=== PATIENT | male | born 1935 | race Caucasian/White ===

== ENCOUNTER 2017-03-26 05:33 | Inpatient (IN) | payer MEDICARE, BC ==
[~2017-03-26] VITALS: Ht 180.3 cm; Wt 76.8 kg
[2017-03-26 06:33] LABS: BASOPHILS # (AUTO) 0.1 X10'3 (0-0.2); BASOPHILS % (AUTO) 1.1 % (0-1); EOSINOPHILS % (AUTO) 0 % (0-6); HEMATOCRIT 54.9 % (42.0-52.0); LYMPHOCYTES # (AUTO) 0.9 X10'3 (1.1-4.8); LYMPHOCYTES % (AUTO) 7.2 % (21-51); MEAN CORPUSCULAR HEMOGLOBIN 30.9 PG (27.0-31.0); MEAN CORPUSCULAR HGB CONC 32.8 % (33.0-36.5); MEAN CORPUSCULAR VOLUME 94.3 FL (78-98); MEAN PLATELET VOLUME 9.9 FL (7.4-10.4); MONOCYTES # (AUTO) 1.1 X10'3 (0-0.9); MONOCYTES % (AUTO) 8.4 % (2-12); NEUTROPHILS # (AUTO) 10.9 X10'3 (1.8-7.7); NEUTROPHILS % (AUTO) 83.3 % (42-75); PLATELET COUNT 355 X10'3 (140-440); RED BLOOD COUNT 5.82 X10'6 (4.70-6.10); RED CELL DISTRIBUTION WIDTH 15.8 % (11.5-14.5); WHITE BLOOD COUNT 13.1 X10'3 (4.5-11.0)
[2017-03-26 06:38] LABS: INR 1.1 INR; PARTIAL THROMBOPLASTIN TIME 29 SECONDS (22-32); PROTHROMBIN TIME 11.3 SECONDS (9.0-12.0)
[2017-03-26] MEDS ORDERED: normal saline 1000ML IV soln IV ONE (06:40)
[2017-03-26 06:54] LABS: ALANINE AMINOTRANSFERASE 43 U/L (12-78); ALBUMIN 3.4 G/DL (3.4-5.0); ALBUMIN/GLOBULIN RATIO 0.6 (1.1-1.5); ALKALINE PHOSPHATASE 285 IU/L (46-116); ANION GAP 17 (8-16); ASPARTATE AMINO TRANSFERASE 29 U/L (10-37); BILIRUBIN,TOTAL 1.5 MG/DL (0.1-1.0); BLOOD UREA NITROGEN 31 MG/DL (7-18); BUN/CREATININE RATIO 16.3 (5.4-32.0); CALCIUM 10.4 MG/DL (8.5-10.1); CHLORIDE 106 MMOL/L (99-107); CREATINE KINASE 57 U/L (39-308); GLUCOSE 143 MG/DL (70-104); POTASSIUM 5.1 MMOL/L (3.5-5.1); SODIUM 146 MMOL/L (135-145); TOTAL CARBON DIOXIDE 23.3 MMOL/L (24-32); TOTAL PROTEIN 8.9 G/DL (6.4-8.2); eGFR 34 ML/MIN
[2017-03-26 06:55] LABS: ACETAMINOPHEN < 2.0 UG/ML (10-30)
[2017-03-26 07:09] LABS: PHOSPHORUS 4.5 MG/DL (2.3-4.5)
[2017-03-26] MEDS ORDERED: LEVO125T8 PO (07:36)
[2017-03-26] MEDS ORDERED: CLON-529 PO (07:36)
[2017-03-26] MEDS ORDERED: LISI40TA4 PO (07:36)
[2017-03-26] MEDS ORDERED: ATOR20TA PO (07:36)
[2017-03-26] MEDS ORDERED: METO50TA17 PO (07:36)
[2017-03-26 08:10] LABS: CLARITY,URINE CLEAR (Clear); COLOR,URINE AMBER (Yellow); GLUCOSE, URINE NEGATIVE (Neg); KETONES,URINE 15 mg/dl (Neg); LEUKOCYTE ESTERASE ,URINE NEGATIVE (Neg); NITRITES, URINE NEGATIVE (Neg); OCCULT BLOOD,URINE TRACE-INTACT (Neg); PROTEIN,URINE >=300 mg/dl (Neg)
[2017-03-26 08:11] LABS: UA COLLECTION TYPE STRAIGHT CATH
[2017-03-26 08:16] LABS: BACTERIA,URINE NONE SEEN /HPF (Neg); MUCUS STRANDS NONE SEEN /LPF (Neg); RBC,URINE 0-2 /HPF (0-2); SPERM FEW /HPF (NEGATIVE); SQUAMOUS EPITHELIAL CELL,UR NONE SEEN /LPF (FEW); WBC,URINE 0-4 /HPF (0-4)
[2017-03-26 08:30] LABS: URINE AMPHETAMINE SCREEN NEGATIVE (Neg); URINE BARBITUATE SCREEN NEGATIVE (Neg); URINE BENZODIAZEPINES SCREEN NEGATIVE (Neg); URINE CANNABINOID SCREEN NEGATIVE (Neg); URINE COCAINE SCREEN NEGATIVE (Neg); URINE METHADONE SCREEN NEGATIVE (Neg); URINE OPIATE SCREEN NEGATIVE (Neg); URINE PHENCYCLIDINE SCREEN NEGATIVE (Neg)
[2017-03-26] MEDS ORDERED: CefTRIAXone 1 gm/50ml D5W ADV 50 ML IV ONE (09:45)
[2017-03-26] MEDS ORDERED: magnesium hydroxide 30ml (MOM) UD suspension PO PRN (10:45)
[2017-03-26] MEDS ORDERED: ondansetron/PF 4mg/2ml inj IV PRN (10:45)
[2017-03-26] MEDS ORDERED: potassium Cl 20 mEq SR tablet PO PRN ×2 (10:45)
[2017-03-26] MEDS ORDERED: mag hydrox/Alum hydrox/simeth 30ml oral suspension PO PRN (10:45)
[2017-03-26] MEDS ORDERED: morphine 2 MG/ML inj. syringe IV PRN (10:45)
[2017-03-26] MEDS ORDERED: magnesium 4gm in 100ml NS 100 ML IV PRN (10:45)
[2017-03-26] MEDS ORDERED: HYDROcodone/acetaminophen 5mg/325mg tablet PO PRN (10:45)
[2017-03-26] MEDS ORDERED: potassium Cl 40MEQ/NS 500ml 500 ML IV PRN ×2 (10:45)
[2017-03-26] MEDS ORDERED: magnesium 2GM in 50ml NS 50 ML IV PRN (10:45)
[2017-03-26] MEDS ORDERED: acetaminophen 325mg tablet PO PRN ×2 (10:45)
[2017-03-26] MEDS ORDERED: azithromycin/NS 500mg/250ml 250 ML IV ONE (11:00)
[2017-03-26] MEDS ORDERED: furosemide 10 MG/1 ML 10ml inj IV ONE (11:00)
[2017-03-26 11:43] VITALS: BP 157/91
[2017-03-26] MEDS: levoTHYROXINE 125mcg tablet PO SCH (12:46)
[2017-03-26] MEDS: cloNIDine 0.1 mg tablet PO SCH ×2 (12:46→20:26)
[2017-03-26] MEDS: guaiFENesin 200 MG/10 ML oral syrup UD cup PO SCH ×2 (13:00→20:30)
[2017-03-26] MEDS: K and/or MAG REPLACEMENT MC SCH (13:13)
[2017-03-26] MEDS: cefTRIAXone 1g/NS 100ml IVPB 100 ML IV SCH (14:24)
[2017-03-26 15:00] VITALS: BP 172/82
[2017-03-26] MEDS: normal saline 1000ml 1,000 ML IV SCH (17:00)
[2017-03-26 18:00] VITALS: BP 165/92
[2017-03-26] MEDS: metoprolol tartrate 50mg tablet PO SCH (19:21)
[2017-03-26] MEDS: heparin, porcine 5000 units/ml vial SQ SCH (19:26)
[2017-03-26 22:00] VITALS: BP 172/93
[2017-03-27 02:00] VITALS: BP 193/94
[2017-03-27] MEDS: amLODIPine 2.5mg tablet PO SCH ×2 (02:40→07:12)
[2017-03-27] MEDS: normal saline 1000ml 1,000 ML IV SCH ×2 (04:01→13:01)
[2017-03-27 06:01] LABS: ALBUMIN 2.8 G/DL (3.4-5.0); ANION GAP 12 (8-16); BLOOD UREA NITROGEN 37 MG/DL (7-18); BUN/CREATININE RATIO 21.8 (5.4-32.0); CALCIUM 9.7 MG/DL (8.5-10.1); CHLORIDE 114 MMOL/L (99-107); CHOL/HDL RATIO 2.4 (0.00-4.99); CHOLESTEROL 127 MG/DL (0-200); GLUCOSE 117 MG/DL (70-104); HDL CHOLESTEROL 52 MG/DL (35-60); LDL CHOLESTEROL 62 MG/DL (50-100); MAGNESIUM 1.9 MG/DL (1.5-2.4); POTASSIUM 4.9 MMOL/L (3.5-5.1); SODIUM 151 MMOL/L (135-145); TOTAL CARBON DIOXIDE 25.1 MMOL/L (24-32); TRIGLYCERIDES 82 MG/DL (20-135); eGFR 39 ML/MIN
[2017-03-27 06:06] LABS: BASOPHILS # (AUTO) 0.1 X10'3 (0-0.2); BASOPHILS % (AUTO) 0.4 % (0-1); EOSINOPHILS # (AUTO) 0.2 X10'3 (0-0.9); HEMATOCRIT 48.9 % (42.0-52.0); HEMOGLOBIN 16.2 g/dl (14.0-17.9); LYMPHOCYTES # (AUTO) 1.4 X10'3 (1.1-4.8); LYMPHOCYTES % (AUTO) 7.9 % (21-51); MEAN CORPUSCULAR HGB CONC 33.1 % (33.0-36.5); MEAN CORPUSCULAR VOLUME 93.9 FL (78-98); MONOCYTES # (AUTO) 1.6 X10'3 (0-0.9); MONOCYTES % (AUTO) 9.5 % (2-12); NEUTROPHILS # (AUTO) 13.8 X10'3 (1.8-7.7); NEUTROPHILS % (AUTO) 81.2 % (42-75); PLATELET COUNT 354 X10'3 (140-440); RED BLOOD COUNT 5.22 X10'6 (4.70-6.10); RED CELL DISTRIBUTION WIDTH 16.2 % (11.5-14.5)
[2017-03-27 06:39] LABS: LARGE PLATELETS FEW; PLATELET ESTIMATE NORMAL
[2017-03-27 07:06] VITALS: BP 125/56
[2017-03-27] MEDS: guaiFENesin 200 MG/10 ML oral syrup UD cup PO SCH ×3 (07:12→20:16)
[2017-03-27] MEDS: cefTRIAXone 1g/NS 100ml IVPB 100 ML IV SCH (07:12)
[2017-03-27] MEDS: levoTHYROXINE 125mcg tablet PO SCH (07:12)
[2017-03-27] MEDS: azithromycin 250mg tablet PO SCH (07:12)
[2017-03-27] MEDS: metoprolol tartrate 50mg tablet PO SCH ×2 (07:13→20:00)
[2017-03-27] MEDS: atorvastatin 20mg tablet PO SCH (07:13)
[2017-03-27] MEDS: cloNIDine 0.1 mg tablet PO SCH ×3 (07:13→20:16)
[2017-03-27] MEDS: heparin, porcine 5000 units/ml vial SQ SCH ×2 (07:13→20:16)
[2017-03-27] MEDS: K and/or MAG REPLACEMENT MC SCH (07:14)
[2017-03-27 11:00] VITALS: BP 124/61
[2017-03-27 16:24] VITALS: BP 159/71
[2017-03-27 18:00] VITALS: BP 102/71
[2017-03-27] MEDS: sodium chloride 0.45% 1,000 ML IV SCH (20:15)
[2017-03-27 22:00] VITALS: BP 168/81
[2017-03-28 02:00] VITALS: BP 179/79
[2017-03-28] MEDS: sodium chloride 0.45% 1,000 ML IV SCH (04:57)
[2017-03-28 05:28] LABS: BASOPHILS # (AUTO) 0.1 X10'3 (0-0.2); BASOPHILS % (AUTO) 0.9 % (0-1); EOSINOPHILS # (AUTO) 0.1 X10'3 (0-0.9); EOSINOPHILS % (AUTO) 0.8 % (0-6); HEMATOCRIT 47.5 % (42.0-52.0); HEMOGLOBIN 15.6 g/dl (14.0-17.9); LYMPHOCYTES # (AUTO) 0.8 X10'3 (1.1-4.8); LYMPHOCYTES % (AUTO) 5.5 % (21-51); MEAN CORPUSCULAR HEMOGLOBIN 30.9 PG (27.0-31.0); MEAN CORPUSCULAR HGB CONC 32.9 % (33.0-36.5); MEAN CORPUSCULAR VOLUME 93.8 FL (78-98); MONOCYTES # (AUTO) 1.2 X10'3 (0-0.9); NEUTROPHILS # (AUTO) 12.7 X10'3 (1.8-7.7); NEUTROPHILS % (AUTO) 84.8 % (42-75); PLATELET COUNT 338 X10'3 (140-440); RED BLOOD COUNT 5.07 X10'6 (4.70-6.10); WHITE BLOOD COUNT 14.9 X10'3 (4.5-11.0)
[2017-03-28 05:39] LABS: ALBUMIN 2.7 G/DL (3.4-5.0); ANION GAP 15 (8-16); BLOOD UREA NITROGEN 47 MG/DL (7-18); BUN/CREATININE RATIO 27.6 (5.4-32.0); CALCIUM 9.4 MG/DL (8.5-10.1); CHLORIDE 113 MMOL/L (99-107); GLUCOSE 115 MG/DL (70-104); POTASSIUM 4.3 MMOL/L (3.5-5.1); SODIUM 148 MMOL/L (135-145); TOTAL CARBON DIOXIDE 19.9 MMOL/L (24-32); eGFR 39 ML/MIN
[2017-03-28 06:58] VITALS: BP 171/85
[2017-03-28] MEDS: cloNIDine 0.1 mg tablet PO SCH ×3 (07:32→20:51)
[2017-03-28] MEDS: metoprolol tartrate 50mg tablet PO SCH ×2 (07:32→20:51)
[2017-03-28] MEDS: cefTRIAXone 1g/NS 100ml IVPB 100 ML IV SCH (07:32)
[2017-03-28] MEDS: levoTHYROXINE 125mcg tablet PO SCH (07:32)
[2017-03-28] MEDS: amLODIPine 2.5mg tablet PO SCH (07:32)
[2017-03-28] MEDS: atorvastatin 20mg tablet PO SCH (07:32)
[2017-03-28] MEDS: guaiFENesin 200 MG/10 ML oral syrup UD cup PO SCH ×3 (07:32→20:46)
[2017-03-28] MEDS: heparin, porcine 5000 units/ml vial SQ SCH (07:32)
[2017-03-28] MEDS: azithromycin 250mg tablet PO SCH (07:32)
[2017-03-28] MEDS: K and/or MAG REPLACEMENT MC SCH (07:33)
[2017-03-28 11:00] VITALS: BP 121/71
[2017-03-28 14:05] LABS: ABG BASE EXCESS -4.6 mmol/L (-2.0-3.0); ABG HCO3 18.1 mmol/L (22.0-26.0); ABG OXYGEN SATURATION 90.3 % (95-98); ABG PCO2 (T) 27.7 mmHg (35.0-48.0); ABG PH (T) 7.432 (7.350-7.450); ABG PO2 (T) 59.9 mmHg (83-108); ALLEN'S TEST Positive; FCOHb 0.6 % (0.5-1.5); FLOW 3 L/min; FMetHb 0.1 % (0.3-1.12); FO2Hb 89.7 % (94-100); TOTAL HEMOGLOBIN 15.3 G/dl (14.0-18.0)
[2017-03-28 15:00] VITALS: BP 147/74
[2017-03-28] MEDS ORDERED: iohexol 350MG/ML 100ml bottle IV ONE (15:11)
[2017-03-28] MEDS: sodium bicarbonate (8.4%) inj. 50 MEQ in dextrose 5%-water 1,000 ML IV SCH (16:31)
[2017-03-28] MEDS: lactobacillus rhamnosus 10,000 MMU CELLS/CAPSULE PO SCH (17:30)
[2017-03-28 17:47] LABS: D-DIMER 4.99 MG/L FEU (0-0.50)
[2017-03-28] MEDS ORDERED: heparin 10,000 units/1 ML INJ IV ONE ×4 (18:25→19:20)
[2017-03-28 19:00] VITALS: BP 119/74
[2017-03-28] MEDS ORDERED: heparin 10,000 units/1 ML INJ IV PRN (19:15)
[2017-03-28 23:00] VITALS: BP 116/74
[2017-03-29 02:09] LABS: BASOPHILS # (AUTO) 0.2 X10'3 (0-0.2); BASOPHILS % (AUTO) 1.2 % (0-1); EOSINOPHILS % (AUTO) 0.2 % (0-6); HEMATOCRIT 43.3 % (42.0-52.0); HEMOGLOBIN 14.3 g/dl (14.0-17.9); LYMPHOCYTES # (AUTO) 1.1 X10'3 (1.1-4.8); LYMPHOCYTES % (AUTO) 6.6 % (21-51); MEAN CORPUSCULAR HEMOGLOBIN 30.7 PG (27.0-31.0); MEAN CORPUSCULAR HGB CONC 32.9 % (33.0-36.5); MEAN CORPUSCULAR VOLUME 93.4 FL (78-98); MEAN PLATELET VOLUME 10.2 FL (7.4-10.4); MONOCYTES # (AUTO) 1.3 X10'3 (0-0.9); MONOCYTES % (AUTO) 7.9 % (2-12); NEUTROPHILS # (AUTO) 13.5 X10'3 (1.8-7.7); NEUTROPHILS % (AUTO) 84.1 % (42-75); PLATELET COUNT 332 X10'3 (140-440); RED BLOOD COUNT 4.64 X10'6 (4.70-6.10); RED CELL DISTRIBUTION WIDTH 15.9 % (11.5-14.5); WHITE BLOOD COUNT 16.1 X10'3 (4.5-11.0)
[2017-03-29 02:24] LABS: ALBUMIN 2.4 G/DL (3.4-5.0); ANION GAP 12 (8-16); BLOOD UREA NITROGEN 56 MG/DL (7-18); CALCIUM 9.2 MG/DL (8.5-10.1); CHLORIDE 112 MMOL/L (99-107); GLUCOSE 130 MG/DL (70-104); MAGNESIUM 2.2 MG/DL (1.5-2.4); POTASSIUM 3.6 MMOL/L (3.5-5.1); SODIUM 146 MMOL/L (135-145); TOTAL CARBON DIOXIDE 22.1 MMOL/L (24-32); eGFR 32 ML/MIN
[2017-03-29 03:00] VITALS: BP 171/81
[2017-03-29 04:48] LABS: ANISOCYTOSIS 1+; BURR CELLS FEW; ELLIPTOCYTES FEW; LARGE PLATELETS FEW; PLATELET ESTIMATE NORMAL
[2017-03-29] MEDS: sodium bicarbonate (8.4%) inj. 50 MEQ in dextrose 5%-water 1,000 ML IV SCH ×2 (05:31→21:12)
[2017-03-29 07:00] VITALS: BP 155/73
[2017-03-29] MEDS: lactobacillus rhamnosus 10,000 MMU CELLS/CAPSULE PO SCH ×2 (07:44→17:30)
[2017-03-29] MEDS: atorvastatin 20mg tablet PO SCH (07:44)
[2017-03-29] MEDS: azithromycin 250mg tablet PO SCH (07:44)
[2017-03-29] MEDS: levoTHYROXINE 125mcg tablet PO SCH (07:44)
[2017-03-29] MEDS: cloNIDine 0.1 mg tablet PO SCH ×3 (07:44→20:21)
[2017-03-29] MEDS: cefTRIAXone 1g/NS 100ml IVPB 100 ML IV SCH (07:44)
[2017-03-29] MEDS: metoprolol tartrate 50mg tablet PO SCH ×2 (07:44→20:22)
[2017-03-29] MEDS: amLODIPine 2.5mg tablet PO SCH (07:44)
[2017-03-29] MEDS: guaiFENesin 200 MG/10 ML oral syrup UD cup PO SCH ×3 (08:00→20:24)
[2017-03-29] MEDS: K and/or MAG REPLACEMENT MC SCH (08:52)
[2017-03-29 11:00] VITALS: BP 134/71
[2017-03-29 15:00] VITALS: BP 126/55
[2017-03-29 19:00] VITALS: BP 122/56
[2017-03-29 23:00] VITALS: BP 103/54
[2017-03-30] MEDS: sodium bicarbonate (8.4%) inj. 50 MEQ in dextrose 5%-water 1,000 ML IV SCH ×2 (02:33→20:11)
[2017-03-30 03:00] VITALS: BP 155/63
[2017-03-30 05:58] LABS: BASOPHILS # (AUTO) 0.1 X10'3 (0-0.2); BASOPHILS % (AUTO) 0.5 % (0-1); EOSINOPHILS # (AUTO) 0.2 X10'3 (0-0.9); EOSINOPHILS % (AUTO) 1.1 % (0-6); HEMOGLOBIN 13.6 g/dl (14.0-17.9); LYMPHOCYTES # (AUTO) 1.1 X10'3 (1.1-4.8); MEAN CORPUSCULAR HEMOGLOBIN 31.4 PG (27.0-31.0); MEAN CORPUSCULAR VOLUME 92.5 FL (78-98); MEAN PLATELET VOLUME 10.2 FL (7.4-10.4); MONOCYTES # (AUTO) 1.5 X10'3 (0-0.9); MONOCYTES % (AUTO) 10.1 % (2-12); NEUTROPHILS # (AUTO) 11.5 X10'3 (1.8-7.7); NEUTROPHILS % (AUTO) 80.3 % (42-75); PLATELET COUNT 306 X10'3 (140-440); RED BLOOD COUNT 4.32 X10'6 (4.70-6.10); RED CELL DISTRIBUTION WIDTH 16.6 % (11.5-14.5); WHITE BLOOD COUNT 14.3 X10'3 (4.5-11.0)
[2017-03-30 06:00] VITALS: BP 97/61
[2017-03-30 06:15] LABS: ANION GAP 13 (8-16); BLOOD UREA NITROGEN 72 MG/DL (7-18); BUN/CREATININE RATIO 24.8 (5.4-32.0); CALCIUM 8.9 MG/DL (8.5-10.1); CHLORIDE 110 MMOL/L (99-107); GLUCOSE 123 MG/DL (70-104); MAGNESIUM 2.2 MG/DL (1.5-2.4); POTASSIUM 3.5 MMOL/L (3.5-5.1); SODIUM 146 MMOL/L (135-145); TOTAL CARBON DIOXIDE 23.3 MMOL/L (24-32); eGFR 21 ML/MIN
[2017-03-30] MEDS ORDERED: levoFLOXACIN-Levaquin 750MG/D5 150 ML IV SCH (08:00)
[2017-03-30] MEDS: K and/or MAG REPLACEMENT MC SCH (08:00)
[2017-03-30] MEDS: metoprolol tartrate 50mg tablet PO SCH ×2 (08:10→20:08)
[2017-03-30] MEDS: amLODIPine 2.5mg tablet PO SCH (08:10)
[2017-03-30] MEDS: lactobacillus rhamnosus 10,000 MMU CELLS/CAPSULE PO SCH ×2 (08:11→17:36)
[2017-03-30] MEDS: levoTHYROXINE 125mcg tablet PO SCH (08:11)
[2017-03-30] MEDS: azithromycin 250mg tablet PO SCH (08:13)
[2017-03-30] MEDS: atorvastatin 20mg tablet PO SCH (08:14)
[2017-03-30] MEDS: cloNIDine 0.1 mg tablet PO SCH ×3 (08:14→20:11)
[2017-03-30] MEDS: guaiFENesin 200 MG/10 ML oral syrup UD cup PO SCH ×3 (08:16→20:08)
[2017-03-30] MEDS: cefTRIAXone 1g/NS 100ml IVPB 100 ML IV SCH (08:22)
[2017-03-30] MEDS: heparin 10,000 units/1 ML INJ IV PRN (08:28)
[2017-03-30 11:00] VITALS: BP 111/50
[2017-03-30 15:00] VITALS: BP 115/50
[2017-03-30] MEDS ORDERED: BIMA2.5D EACHEYE (15:28)
[2017-03-30] MEDS ORDERED: AZO1OS LEFTEYE (15:28)
[2017-03-30] MEDS ORDERED: BRIM5DRO2 LEFTEYE (15:28)
[2017-03-30 18:30] VITALS: BP 134/58
[2017-03-30] MEDS ORDERED: non-formulary drug (Brimonidine Tartrate/Timolol (Combigan Eye Drops) 1 DROP) LEFTEYE SCH (20:00)
[2017-03-30] MEDS: latanoprost 0.005% 2.5ml ophthalmic drops EACHEYE SCH (20:04)
[2017-03-30] MEDS: dorzolamide 2% ophthalmic drops 10ml EACHEYE SCH (20:05)
[2017-03-30] MEDS: brimonidine 0.2% 5 ML ophthalmic drops LEFTEYE SCH (20:05)
[2017-03-30] MEDS: timolol 0.5% ophthalmic solution 5ml bottle LEFTEYE SCH (20:05)
[2017-03-30 22:00] VITALS: BP 105/54
[2017-03-31 06:00] VITALS: BP 134/62
[2017-03-31 06:30] LABS: BASOPHILS # (AUTO) 0.1 X10'3 (0-0.2); BASOPHILS % (AUTO) 0.7 % (0-1); EOSINOPHILS # (AUTO) 0.3 X10'3 (0-0.9); EOSINOPHILS % (AUTO) 2.9 % (0-6); HEMATOCRIT 37.3 % (42.0-52.0); HEMOGLOBIN 12.8 g/dl (14.0-17.9); LYMPHOCYTES # (AUTO) 1.2 X10'3 (1.1-4.8); LYMPHOCYTES % (AUTO) 10.1 % (21-51); MEAN CORPUSCULAR HEMOGLOBIN 31.7 PG (27.0-31.0); MEAN CORPUSCULAR HGB CONC 34.3 % (33.0-36.5); MEAN CORPUSCULAR VOLUME 92.3 FL (78-98); MEAN PLATELET VOLUME 11.3 FL (7.4-10.4); MONOCYTES # (AUTO) 1.1 X10'3 (0-0.9); MONOCYTES % (AUTO) 9.3 % (2-12); PLATELET COUNT 273 X10'3 (140-440); RED BLOOD COUNT 4.04 X10'6 (4.70-6.10); WHITE BLOOD COUNT 11.6 X10'3 (4.5-11.0)
[2017-03-31 06:45] LABS: ANION GAP 9 (8-16); BLOOD UREA NITROGEN 65 MG/DL (7-18); CHLORIDE 108 MMOL/L (99-107); GLUCOSE 100 MG/DL (70-104); POTASSIUM 3.7 MMOL/L (3.5-5.1); SODIUM 144 MMOL/L (135-145)
[2017-03-31 06:46] LABS: ALBUMIN 1.9 G/DL (3.4-5.0); BUN/CREATININE RATIO 36.1 (5.4-32.0); CALCIUM 8.6 MG/DL (8.5-10.1); eGFR 36 ML/MIN
[2017-03-31] MEDS: K and/or MAG REPLACEMENT MC SCH (08:00)
[2017-03-31] MEDS ORDERED: non-formulary drug (Lisinopril* 1 TAB) PO SCH (08:00)
[2017-03-31] MEDS: lisinopril 20mg tablet PO SCH (08:06)
[2017-03-31] MEDS: azithromycin 250mg tablet PO SCH (08:06)
[2017-03-31] MEDS: cefTRIAXone 1g/NS 100ml IVPB 100 ML IV SCH (08:07)
[2017-03-31] MEDS: atorvastatin 20mg tablet PO SCH (08:07)
[2017-03-31] MEDS: levoTHYROXINE 125mcg tablet PO SCH (08:07)
[2017-03-31] MEDS: amLODIPine 2.5mg tablet PO SCH (08:07)
[2017-03-31] MEDS: cloNIDine 0.1 mg tablet PO SCH ×3 (08:07→20:42)
[2017-03-31] MEDS: metoprolol tartrate 50mg tablet PO SCH ×2 (08:07→20:36)
[2017-03-31] MEDS: guaiFENesin 200 MG/10 ML oral syrup UD cup PO SCH ×3 (08:07→20:42)
[2017-03-31] MEDS: lactobacillus rhamnosus 10,000 MMU CELLS/CAPSULE PO SCH ×2 (08:11→16:52)
[2017-03-31] MEDS: dorzolamide 2% ophthalmic drops 10ml EACHEYE SCH ×2 (08:16→20:00)
[2017-03-31] MEDS: brimonidine 0.2% 5 ML ophthalmic drops LEFTEYE SCH ×2 (08:16→20:00)
[2017-03-31] MEDS: timolol 0.5% ophthalmic solution 5ml bottle LEFTEYE SCH ×2 (08:17→20:00)
[2017-03-31] MEDS: heparin 10,000 units/1 ML INJ IV PRN (08:24)
[2017-03-31 11:00] VITALS: BP 123/56
[2017-03-31 11:20] LABS: INR 1.1 INR; PROTHROMBIN TIME 11.7 SECONDS (9.0-12.0)
[2017-03-31 15:00] VITALS: BP 138/57
[2017-03-31] MEDS: sodium bicarbonate (8.4%) inj. 50 MEQ in dextrose 5%-water 1,000 ML IV SCH (16:02)
[2017-03-31] MEDS ORDERED: CefTRIAXone 1 gm/50ml D5W ADV 50 ML IV SCH (17:46)
[2017-03-31 18:30] VITALS: BP 140/55
[2017-03-31] MEDS: latanoprost 0.005% 2.5ml ophthalmic drops EACHEYE SCH (20:43)
[2017-04-01 02:00] VITALS: BP 140/69
[2017-04-01 06:00] VITALS: BP 130/73
[2017-04-01 06:47] LABS: BASOPHILS % (AUTO) 0.3 % (0-1); EOSINOPHILS # (AUTO) 0.3 X10'3 (0-0.9); EOSINOPHILS % (AUTO) 2.9 % (0-6); HEMATOCRIT 34.4 % (42.0-52.0); HEMOGLOBIN 12.2 g/dl (14.0-17.9); LYMPHOCYTES # (AUTO) 1.2 X10'3 (1.1-4.8); LYMPHOCYTES % (AUTO) 10.7 % (21-51); MEAN CORPUSCULAR HEMOGLOBIN 31.6 PG (27.0-31.0); MEAN CORPUSCULAR HGB CONC 35.6 % (33.0-36.5); MEAN CORPUSCULAR VOLUME 88.8 FL (78-98); MEAN PLATELET VOLUME 11.1 FL (7.4-10.4); MONOCYTES # (AUTO) 1.1 X10'3 (0-0.9); MONOCYTES % (AUTO) 9.8 % (2-12); NEUTROPHILS # (AUTO) 8.6 X10'3 (1.8-7.7); NEUTROPHILS % (AUTO) 76.3 % (42-75); PLATELET COUNT 259 X10'3 (140-440); RED BLOOD COUNT 3.87 X10'6 (4.70-6.10); WHITE BLOOD COUNT 11.3 X10'3 (4.5-11.0)
[2017-04-01] MEDS: brimonidine 0.2% 5 ML ophthalmic drops LEFTEYE SCH ×2 (08:00→19:41)
[2017-04-01] MEDS: K and/or MAG REPLACEMENT MC SCH (08:00)
[2017-04-01] MEDS: timolol 0.5% ophthalmic solution 5ml bottle LEFTEYE SCH ×2 (08:00→19:52)
[2017-04-01] MEDS: dorzolamide 2% ophthalmic drops 10ml EACHEYE SCH ×2 (08:00→19:28)
[2017-04-01 08:28] LABS: LARGE PLATELETS FEW; PLATELET ESTIMATE NORMAL
[2017-04-01] MEDS: atorvastatin 20mg tablet PO SCH (08:38)
[2017-04-01] MEDS: metoprolol tartrate 50mg tablet PO SCH ×2 (08:38→19:28)
[2017-04-01] MEDS: levoTHYROXINE 125mcg tablet PO SCH (08:38)
[2017-04-01] MEDS: cloNIDine 0.1 mg tablet PO SCH ×3 (08:39→21:11)
[2017-04-01] MEDS: lactobacillus rhamnosus 10,000 MMU CELLS/CAPSULE PO SCH ×2 (08:39→17:23)
[2017-04-01] MEDS: lisinopril 20mg tablet PO SCH (08:39)
[2017-04-01] MEDS: azithromycin 250mg tablet PO SCH (08:39)
[2017-04-01] MEDS: amLODIPine 2.5mg tablet PO SCH (08:39)
[2017-04-01] MEDS: guaiFENesin 200 MG/10 ML oral syrup UD cup PO SCH ×3 (08:41→21:11)
[2017-04-01 11:00] VITALS: BP 118/61
[2017-04-01 15:00] VITALS: BP 102/58
[2017-04-01] MEDS: Protein Shake (high protein) 240ml (8oz) cup PO SCH (18:35)
[2017-04-01 19:00] VITALS: BP 134/102
[2017-04-01] MEDS: rivaroxaban 15mg tablet PO SCH (19:28)
[2017-04-01] MEDS: latanoprost 0.005% 2.5ml ophthalmic drops EACHEYE SCH (21:11)
[2017-04-01 23:00] VITALS: BP 118/59
[2017-04-02 03:00] VITALS: BP 133/62
[2017-04-02 05:04] LABS: BASOPHILS % (AUTO) 0.4 % (0-1); EOSINOPHILS # (AUTO) 0.4 X10'3 (0-0.9); EOSINOPHILS % (AUTO) 4.3 % (0-6); HEMATOCRIT 36.4 % (42.0-52.0); HEMOGLOBIN 12.3 g/dl (14.0-17.9); LYMPHOCYTES # (AUTO) 1.5 X10'3 (1.1-4.8); LYMPHOCYTES % (AUTO) 15.7 % (21-51); MEAN CORPUSCULAR HEMOGLOBIN 31.4 PG (27.0-31.0); MEAN CORPUSCULAR HGB CONC 33.8 % (33.0-36.5); MEAN CORPUSCULAR VOLUME 92.7 FL (78-98); MEAN PLATELET VOLUME 9.9 FL (7.4-10.4); MONOCYTES # (AUTO) 1.1 X10'3 (0-0.9); MONOCYTES % (AUTO) 11.5 % (2-12); NEUTROPHILS # (AUTO) 6.5 X10'3 (1.8-7.7); NEUTROPHILS % (AUTO) 68.1 % (42-75); PLATELET COUNT 268 X10'3 (140-440); RED BLOOD COUNT 3.92 X10'6 (4.70-6.10); RED CELL DISTRIBUTION WIDTH 16.1 % (11.5-14.5); WHITE BLOOD COUNT 9.5 X10'3 (4.5-11.0)
[2017-04-02 06:00] VITALS: BP 144/64
[2017-04-02] MEDS: K and/or MAG REPLACEMENT MC SCH (07:06)
[2017-04-02] MEDS: lactobacillus rhamnosus 10,000 MMU CELLS/CAPSULE PO SCH ×2 (07:16→17:10)
[2017-04-02] MEDS: atorvastatin 20mg tablet PO SCH (07:17)
[2017-04-02] MEDS: rivaroxaban 15mg tablet PO SCH (07:17)
[2017-04-02] MEDS: levoTHYROXINE 125mcg tablet PO SCH (07:17)
[2017-04-02] MEDS: cloNIDine 0.1 mg tablet PO SCH ×3 (07:17→22:42)
[2017-04-02] MEDS: amLODIPine 2.5mg tablet PO SCH (07:17)
[2017-04-02] MEDS: lisinopril 20mg tablet PO SCH (07:17)
[2017-04-02] MEDS: metoprolol tartrate 50mg tablet PO SCH ×2 (07:17→22:45)
[2017-04-02] MEDS: azithromycin 250mg tablet PO SCH (07:17)
[2017-04-02] MEDS: guaiFENesin 200 MG/10 ML oral syrup UD cup PO SCH ×3 (07:18→22:44)
[2017-04-02] MEDS: dorzolamide 2% ophthalmic drops 10ml EACHEYE SCH ×2 (07:18→22:41)
[2017-04-02] MEDS: timolol 0.5% ophthalmic solution 5ml bottle LEFTEYE SCH ×2 (07:18→22:44)
[2017-04-02] MEDS: brimonidine 0.2% 5 ML ophthalmic drops LEFTEYE SCH ×2 (07:18→20:00)
[2017-04-02] MEDS: CefTRIAXone/D5W-Rocephin 1gm 50 ML IV SCH (07:19)
[2017-04-02] MEDS: Protein Shake (high protein) 240ml (8oz) cup PO SCH ×3 (08:00→18:00)
[2017-04-02 11:00] VITALS: BP 125/71
[2017-04-02 15:00] VITALS: BP 100/53
[2017-04-02 18:30] VITALS: BP 148/54
[2017-04-02] MEDS: latanoprost 0.005% 2.5ml ophthalmic drops EACHEYE SCH (21:00)
[2017-04-02 22:30] VITALS: BP 142/62
[2017-04-02] MEDS: apixaban 5mg tablet PO SCH (22:45)
[2017-04-03 02:30] VITALS: BP 143/68
[2017-04-03 06:00] VITALS: BP 151/61
[2017-04-03] MEDS: Protein Shake (high protein) 240ml (8oz) cup PO SCH ×3 (08:00→18:00)
[2017-04-03] MEDS: K and/or MAG REPLACEMENT MC SCH (08:00)
[2017-04-03] MEDS: CefTRIAXone/D5W-Rocephin 1gm 50 ML IV SCH (09:14)
[2017-04-03] MEDS: guaiFENesin 200 MG/10 ML oral syrup UD cup PO SCH ×3 (09:18→20:31)
[2017-04-03] MEDS: atorvastatin 20mg tablet PO SCH (09:18)
[2017-04-03] MEDS: levoTHYROXINE 125mcg tablet PO SCH (09:18)
[2017-04-03] MEDS: lactobacillus rhamnosus 10,000 MMU CELLS/CAPSULE PO SCH ×2 (09:18→17:30)
[2017-04-03] MEDS: cloNIDine 0.1 mg tablet PO SCH ×3 (09:19→20:34)
[2017-04-03] MEDS: lisinopril 20mg tablet PO SCH (09:19)
[2017-04-03] MEDS: metoprolol tartrate 50mg tablet PO SCH ×2 (09:19→20:34)
[2017-04-03] MEDS: amLODIPine 2.5mg tablet PO SCH (09:19)
[2017-04-03] MEDS: azithromycin 250mg tablet PO SCH (09:20)
[2017-04-03] MEDS: apixaban 5mg tablet PO SCH ×2 (09:20→20:39)
[2017-04-03] MEDS: timolol 0.5% ophthalmic solution 5ml bottle LEFTEYE SCH ×2 (09:33→20:33)
[2017-04-03] MEDS: brimonidine 0.2% 5 ML ophthalmic drops LEFTEYE SCH ×2 (09:34→20:36)
[2017-04-03] MEDS: dorzolamide 2% ophthalmic drops 10ml EACHEYE SCH ×2 (09:34→20:30)
[2017-04-03 13:18] LABS: BASOPHILS # (AUTO) 0.1 X10'3 (0-0.2); EOSINOPHILS # (AUTO) 0.4 X10'3 (0-0.9); EOSINOPHILS % (AUTO) 4.7 % (0-6); HEMATOCRIT 35.8 % (42.0-52.0); HEMOGLOBIN 12.3 g/dl (14.0-17.9); LYMPHOCYTES # (AUTO) 1.3 X10'3 (1.1-4.8); LYMPHOCYTES % (AUTO) 14.1 % (21-51); MEAN CORPUSCULAR HEMOGLOBIN 31.8 PG (27.0-31.0); MEAN CORPUSCULAR HGB CONC 34.5 % (33.0-36.5); MEAN CORPUSCULAR VOLUME 92.3 FL (78-98); MEAN PLATELET VOLUME 10.5 FL (7.4-10.4); MONOCYTES % (AUTO) 10.9 % (2-12); NEUTROPHILS # (AUTO) 6.4 X10'3 (1.8-7.7); NEUTROPHILS % (AUTO) 69.3 % (42-75); PLATELET COUNT 274 X10'3 (140-440); RED BLOOD COUNT 3.88 X10'6 (4.70-6.10); WHITE BLOOD COUNT 9.2 X10'3 (4.5-11.0)
[2017-04-03 13:28] LABS: LARGE PLATELETS FEW; PLATELET ESTIMATE NORMAL
[2017-04-03 13:34] LABS: ALANINE AMINOTRANSFERASE 85 U/L (12-78); ALBUMIN 1.7 G/DL (3.4-5.0); ALBUMIN/GLOBULIN RATIO 0.4 (1.1-1.5); ALKALINE PHOSPHATASE 226 IU/L (46-116); ANION GAP 9 (8-16); ASPARTATE AMINO TRANSFERASE 57 U/L (10-37); BILIRUBIN,TOTAL 0.3 MG/DL (0.1-1.0); BLOOD UREA NITROGEN 32 MG/DL (7-18); BUN/CREATININE RATIO 29.1 (5.4-32.0); CALCIUM 8.4 MG/DL (8.5-10.1); CHLORIDE 109 MMOL/L (99-107); GLUCOSE 101 MG/DL (70-104); SODIUM 143 MMOL/L (135-145); TOTAL CARBON DIOXIDE 25.3 MMOL/L (24-32); TOTAL PROTEIN 5.6 G/DL (6.4-8.2); eGFR 64 ML/MIN
[2017-04-03 19:00] VITALS: BP 132/61
[2017-04-03] MEDS: latanoprost 0.005% 2.5ml ophthalmic drops EACHEYE SCH (20:39)
[2017-04-03 23:00] VITALS: BP 111/58
[2017-04-04 03:00] VITALS: BP 145/63
[2017-04-04 07:00] VITALS: BP 139/83
[2017-04-04] MEDS: levoTHYROXINE 125mcg tablet PO SCH (07:23)
[2017-04-04] MEDS: lactobacillus rhamnosus 10,000 MMU CELLS/CAPSULE PO SCH ×2 (07:30→17:30)
[2017-04-04] MEDS: apixaban 5mg tablet PO SCH ×2 (07:31→20:00)
[2017-04-04] MEDS: cloNIDine 0.1 mg tablet PO SCH ×3 (07:31→20:01)
[2017-04-04] MEDS: metoprolol tartrate 50mg tablet PO SCH ×2 (07:31→19:49)
[2017-04-04] MEDS: lisinopril 20mg tablet PO SCH (07:31)
[2017-04-04] MEDS: azithromycin 250mg tablet PO SCH (07:32)
[2017-04-04] MEDS: amLODIPine 2.5mg tablet PO SCH (07:32)
[2017-04-04] MEDS: atorvastatin 20mg tablet PO SCH (07:32)
[2017-04-04] MEDS: guaiFENesin 200 MG/10 ML oral syrup UD cup PO SCH ×3 (07:43→20:01)
[2017-04-04] MEDS: brimonidine 0.2% 5 ML ophthalmic drops LEFTEYE SCH ×2 (07:46→19:57)
[2017-04-04] MEDS: dorzolamide 2% ophthalmic drops 10ml EACHEYE SCH ×2 (07:47→19:50)
[2017-04-04] MEDS: timolol 0.5% ophthalmic solution 5ml bottle LEFTEYE SCH ×2 (07:47→19:57)
[2017-04-04] MEDS: K and/or MAG REPLACEMENT MC SCH (08:00)
[2017-04-04] MEDS: CefTRIAXone/D5W-Rocephin 1gm 50 ML IV SCH (08:22)
[2017-04-04] MEDS: Protein Shake (high protein) 240ml (8oz) cup PO SCH ×3 (08:56→18:00)
[2017-04-04 11:00] VITALS: BP 139/64
[2017-04-04 15:00] VITALS: BP 130/61
[2017-04-04 19:00] VITALS: BP 147/60
[2017-04-04] MEDS: latanoprost 0.005% 2.5ml ophthalmic drops EACHEYE SCH (20:01)
[2017-04-04 23:00] VITALS: BP 139/72
[2017-04-05 05:37] LABS: BASOPHILS # (AUTO) 0.1 X10'3 (0-0.2); EOSINOPHILS # (AUTO) 0.6 X10'3 (0-0.9); EOSINOPHILS % (AUTO) 5.8 % (0-6); HEMATOCRIT 37.3 % (42.0-52.0); HEMOGLOBIN 12.5 g/dl (14.0-17.9); LYMPHOCYTES # (AUTO) 2.1 X10'3 (1.1-4.8); LYMPHOCYTES % (AUTO) 18.9 % (21-51); MEAN CORPUSCULAR HEMOGLOBIN 31.2 PG (27.0-31.0); MEAN CORPUSCULAR HGB CONC 33.6 % (33.0-36.5); MEAN CORPUSCULAR VOLUME 92.8 FL (78-98); MEAN PLATELET VOLUME 9.2 FL (7.4-10.4); MONOCYTES % (AUTO) 9.2 % (2-12); NEUTROPHILS # (AUTO) 7.1 X10'3 (1.8-7.7); NEUTROPHILS % (AUTO) 65.1 % (42-75); PLATELET COUNT 307 X10'3 (140-440); RED BLOOD COUNT 4.02 X10'6 (4.70-6.10); RED CELL DISTRIBUTION WIDTH 15.6 % (11.5-14.5); WHITE BLOOD COUNT 10.9 X10'3 (4.5-11.0)
[2017-04-05 06:10] LABS: ALANINE AMINOTRANSFERASE 86 U/L (12-78); ALBUMIN/GLOBULIN RATIO 0.5 (1.1-1.5); ALKALINE PHOSPHATASE 260 IU/L (46-116); ANION GAP 8 (8-16); ASPARTATE AMINO TRANSFERASE 56 U/L (10-37); BILIRUBIN,TOTAL 0.5 MG/DL (0.1-1.0); BLOOD UREA NITROGEN 23 MG/DL (7-18); BUN/CREATININE RATIO 19.2 (5.4-32.0); CALCIUM 8.7 MG/DL (8.5-10.1); CHLORIDE 109 MMOL/L (99-107); GLUCOSE 107 MG/DL (70-104); POTASSIUM 4.1 MMOL/L (3.5-5.1); SODIUM 141 MMOL/L (135-145); TOTAL CARBON DIOXIDE 23.7 MMOL/L (24-32); TOTAL PROTEIN 6.1 G/DL (6.4-8.2); eGFR 58 ML/MIN
[2017-04-05] MEDS: levoTHYROXINE 125mcg tablet PO SCH (07:10)
[2017-04-05] MEDS: lactobacillus rhamnosus 10,000 MMU CELLS/CAPSULE PO SCH ×2 (07:10→17:06)
[2017-04-05] MEDS: metoprolol tartrate 50mg tablet PO SCH ×2 (07:11→19:17)
[2017-04-05] MEDS: cloNIDine 0.1 mg tablet PO SCH ×3 (07:11→21:37)
[2017-04-05] MEDS: apixaban 5mg tablet PO SCH ×2 (07:11→19:17)
[2017-04-05] MEDS: atorvastatin 20mg tablet PO SCH (07:11)
[2017-04-05] MEDS: amLODIPine 2.5mg tablet PO SCH (07:11)
[2017-04-05] MEDS: lisinopril 20mg tablet PO SCH (07:11)
[2017-04-05] MEDS: timolol 0.5% ophthalmic solution 5ml bottle LEFTEYE SCH ×2 (07:11→19:18)
[2017-04-05] MEDS: guaiFENesin 200 MG/10 ML oral syrup UD cup PO SCH ×3 (07:12→21:37)
[2017-04-05] MEDS: brimonidine 0.2% 5 ML ophthalmic drops LEFTEYE SCH ×2 (07:12→19:19)
[2017-04-05] MEDS: dorzolamide 2% ophthalmic drops 10ml EACHEYE SCH ×2 (07:15→19:19)
[2017-04-05] MEDS: K and/or MAG REPLACEMENT MC SCH (08:00)
[2017-04-05 11:00] VITALS: BP 133/56
[2017-04-05] MEDS: CefTRIAXone/D5W-Rocephin 1gm 50 ML IV SCH (11:12)
[2017-04-05] MEDS: Protein Shake (high protein) 240ml (8oz) cup PO SCH ×2 (13:00→18:00)
[2017-04-05 15:00] VITALS: BP 159/71
[2017-04-05] MEDS ORDERED: APIX5TAB3 PO (17:18)
[2017-04-05 18:30] VITALS: BP 159/78
[2017-04-05] MEDS: latanoprost 0.005% 2.5ml ophthalmic drops EACHEYE SCH (21:39)
[2017-04-05 22:00] VITALS: BP 167/78
[2017-04-06 02:00] VITALS: BP 146/70
[2017-04-06 06:00] VITALS: BP 168/75
[2017-04-06] MEDS: guaiFENesin 200 MG/10 ML oral syrup UD cup PO SCH (07:18)
[2017-04-06] MEDS: cloNIDine 0.1 mg tablet PO SCH (07:19)
[2017-04-06] MEDS: lactobacillus rhamnosus 10,000 MMU CELLS/CAPSULE PO SCH (07:19)
[2017-04-06] MEDS: levoTHYROXINE 125mcg tablet PO SCH (07:19)
[2017-04-06] MEDS: amLODIPine 2.5mg tablet PO SCH (07:19)
[2017-04-06] MEDS: atorvastatin 20mg tablet PO SCH (07:19)
[2017-04-06] MEDS: metoprolol tartrate 50mg tablet PO SCH (07:19)
[2017-04-06] MEDS: lisinopril 20mg tablet PO SCH (07:19)
[2017-04-06] MEDS: brimonidine 0.2% 5 ML ophthalmic drops LEFTEYE SCH (07:22)
[2017-04-06] MEDS: timolol 0.5% ophthalmic solution 5ml bottle LEFTEYE SCH (07:23)
[2017-04-06] MEDS: dorzolamide 2% ophthalmic drops 10ml EACHEYE SCH (07:23)
[2017-04-06] MEDS: apixaban 5mg tablet PO SCH (07:33)
== END 2017-04-06 09:15 | disposition home health service (06) | DRG 871 ==
LOC: ER 05:34 → PCU 3S 10:42
PROVIDERS: ADMIT Internal Medicine; ATTEND Internal Medicine
DX: A41.9 Sepsis, unspecified organism (principal); J18.9 Pneumonia, unspecified organism; I26.99 Other pulmonary embolism without acute cor pulmonale; G93.40 Encephalopathy, unspecified; I50.23 Acute on chronic systolic (congestive) heart failure; N17.9 Acute kidney failure, unspecified; E87.2 Acidosis; I13.0 Hypertensive heart and chronic kidney disease with heart failure and stage 1 through stage 4 chronic kidney disease, or unspecified chronic kidney disease; Z86.74 Personal history of sudden cardiac arrest; K21.9 Gastro-esophageal reflux disease without esophagitis; N18.9 Chronic kidney disease, unspecified; J43.9 Emphysema, unspecified; E03.9 Hypothyroidism, unspecified; E78.00 Pure hypercholesterolemia, unspecified; I25.10 Atherosclerotic heart disease of native coronary artery without angina pectoris; I25.2 Old myocardial infarction; Z90.49 Acquired absence of other specified parts of digestive tract; Z95.0 Presence of cardiac pacemaker; Z79.899 Other long term (current) drug therapy; Z85.46 Personal history of malignant neoplasm of prostate; Z87.891 Personal history of nicotine dependence
CPT/HCPCS: 36415; 36600; 70450; 71045; 71275; 73660; 76775; 80048; 80053; 80061; 80305; 80329; 81001; 82550; 82803; 83605; 83735; 83874; 83880; 84100; 84145; 84439; 84443; 84480; 84484; 85018; 85025; 85379; 85610; 85730; 86885; 86900; 86901; 87040; 92616; 93005; 93306; 93922; 93925; 93926; 96360; 97110; 97116; 97162; 97530; 99285; A4315; A4333; A4353; A6212; A6213; J0456; J0696; J1644; J1940; J1956; J7030; Q9967